=== PATIENT | male | born 1985 ===

== ENCOUNTER 2017-12-31 17:49 | Emergency (ER) | payer OTHER ==
[~2017-12-31 17:49] MED LIST: ASP81CT PO; LORA1TAB PO; RIVA20TA2 PO; WRF5T PO
--- OUTSIDE RECORDS SUMMARY | 2018-01-01 11:56 | XMS REPORT | Continuity of Care Document ---
Author Author [facility] Organization [facility] Address Unknown Phone Unavailable Allergies There is no data. Medications Medication Packaging Start Date Stop Date Route Dosage Sig XARELTO 01/18/2015 ORAL 1414 daily FLUTICASONE PROPIONATE 2014 Nasal 1616 daily FLONASE 02/21/2015 11 QDAY AUGMENTIN 02/21/2015 ORAL 2020 BID FLONASE 02/21/2015 1 QDAY AUGMENTIN 02/21/2015 ORAL 20 BID Problems Date Dx Coded Attending Type Code Diagnosis Diagnosed By 11/18/2012 Ot 415.19 OTH PULMON EMBOLISM/INFARCT 11/18/2012 Ot 453.40 ACUTE VENOUS EMBOLISM THROMBOSIS UNSP 11/18/2012 Ot 729.5 PAIN IN LIMB 02/18/2013 VICKEY MCMANUS MD Ot 785.1 PALPITATIONS 02/18/2013 VICKEY MCMANUS MD Ot 786.05 SHORTNESS OF BREATH 02/18/2013 VICKEY MCMANUS MD Ot 786.09 RESPIRATORY ABNORM NEC 02/18/2013 VICKEY MCMANUS MD Ot V12.51 HX-VENOUS THROMBOSIS EMBOLISM 02/18/2013 VICKEY MCMANUS MD Ot V12.55 PERSONAL HISTORY OF PULMONARY EMBOLISM 02/18/2013 VICKEY MCMANUS MD Ot V58.69 OTH MED,LT,CURRENT USE Procedures There is no data. Results There is no data. Encounters ACCT No. Visit Date/Time Discharge Status Pt. Type Provider Facility Loc./Unit Complaint [id number] 12/31/2017 17:50:00 12/31/2017 18:00:00 DIS Emergency VICKEY MCMANUS MD [facility] ER ANXIETY [id number] 02/18/2013 19:20:00 02/18/2013 23:42:00 DIS Emergency VICKEY MCMANUS MD [facility] ER SOA [id number] 11/18/2012 16:00:00 Document Registration [id number] 03/06/2015 07:10:13 03/06/2015 07:10:13 DIS Outpatient [id number] 02/23/2015 07:12:59 Document Registration [id number] 02/23/2015 07:12:53 Document Registration [id number] 02/23/2015 07:12:50 Document Registration [id number] 02/23/2015 07:12:23 Document Registration [id number] 02/23/2015 07:12:19 Document Registration [id number] 02/23/2015 07:12:16 Document Registration [id number] 02/23/2015 07:12:12 Document Registration [id number] 02/23/2015 07:12:08 Document Registration [id number] 02/23/2015 07:12:05 Document Registration [id number] 02/23/2015 07:11:57 Document Registration [id number] 02/23/2015 07:11:54 Document Registration [id number] 02/23/2015 07:11:50 Document Registration [id number] 02/23/2015 07:11:47 Document Registration [id number] 02/23/2015 07:11:39 Document Registration [id number] 01/18/2015 17:39:41 Document Registration [id number] 01/18/2015 17:39:38 Document Registration [id number] 01/18/2015 17:39:34 Document Registration [id number] 01/18/2015 17:39:31 Document Registration [id number] 01/18/2015 17:39:27 Document Registration
== END 2017-12-31 18:00 | disposition left against medical advice (07) ==
LOC: EDUNIT# 17:49 → ER 17:50
DX: F41.9 Anxiety disorder, unspecified (principal)

== ENCOUNTER 2018-01-05 19:09 | Emergency (ER) | payer OTHER ==
[~2018-01-05] VITALS: Ht 188 cm; Wt 90.7 kg
--- OUTSIDE RECORDS SUMMARY | 2018-01-05 19:13 | XMS REPORT | Continuity of Care Document ---
Author Author [facility] Organization [facility] Address Unknown Phone Unavailable Allergies There [...] EMBOLISM 02/18/2013 VICKEY MCMANUS MD Ot V58.69 OT MED,LT,CURRENT USE 01/02/2018 VICKEY MCMANUS MD Ot F41.9 ANXIETY DISORDER, UNSPECIFIED 01/02/2018 VICKEY MCMANUS MD Ot F41.9 ANXIETY DISORDER, UNSPECIFIED Procedures There is no data. Results There is no data. Encounters ACCT No. Visit Date/Time Discharge Status Pt. Type Provider Facility Loc./Unit Complaint [id number] 12/31/2017 17:50:00 12/31/2017 18:00:00 DIS Outpatient VICKEY MCMANUS MD [facility] ER ANXIETY [id number] 02/18/2013 19:20:00 02/18/2013 23:42:00 DIS Emergency YONATHAN TERRY, VICKEY Lopes [facility] ER SOA [id number] 11/18/2012 16:00:00 Document Registration [id number] 03/06/2015 07:10:13 03/06/2015 07:10:13 DIS Outpatient [id number] 02/23/2015 07:12:59 Document Registration [id number] 02/23/2015 07:12:53 Document Registration [id number] 02/23/2015 07:12:50 Document Registration [id number] 02/23/2015 07:12:23 Document Registration [id number] 02/23/2015 07:12:19 Document Registration [id number] 02/23/2015 07:12:16 Document Registration [id number] 02/23/2015 07:12:12 Document Registration [id number] 02/23/2015 07:12:08 Document Registration [id number] 02/23/2015 07:12:05 Document Registration [id number] 02/23/2015 07:11:57 Document Registration [id number] 02/23/2015 07:11:54 Document Registration [id number] 02/23/2015 07:11:50 Document Registration [id number] 02/23/2015 07:11:47 Document Registration [id number] 02/23/2015 07:11:39 Document Registration [id number] 01/18/2015 17:39:41 Document Registration [id number] 01/18/2015 17:39:38 Document Registration [id number] 01/18/2015 17:39:34 Document Registration [id number] 01/18/2015 17:39:31 Document Registration [id number] 01/18/2015 17:39:27 Document Registration
[2018-01-05 20:38] LABS: BASOPHILS % (AUTO) 0 % (0-10); EOSINOPHILS % (AUTO) 1 % (0-10); HEMATOCRIT 42 % (40-54); HEMOGLOBIN 15.2 G/DL (13.3-17.7); LYMPHOCYTES % (AUTO) 17 % (12-44); MEAN CORPUSCULAR HEMOGLOBIN 33 PG (25-34); MEAN CORPUSCULAR HGB CONC 36 G/DL (32-36); MEAN CORPUSCULAR VOLUME 91 FL (80-99); MEAN PLATELET VOLUME 9.7 FL (7.4-10.4); MONOCYTES # (AUTO) 0.5 X 10^3 (0.0-1.0); MONOCYTES % (AUTO) 9 % (0-12); NEUTROPHILS # (AUTO) 4.2 X 10^3 (1.8-7.8); NEUTROPHILS % (AUTO) 73 % (42-75); PLATELET COUNT 219 10^3/uL (130-400); RED BLOOD COUNT 4.62 10^6/uL (4.35-5.85); WHITE BLOOD COUNT 5.7 10^3/uL (4.3-11.0)
[2018-01-05 20:49] LABS: ALANINE AMINOTRANSFERASE 107 U/L (0-55); ALBUMIN 4.8 GM/DL (3.2-4.5); ALKALINE PHOSPHATASE 64 U/L (40-136); BILIRUBIN,TOTAL 0.8 MG/DL (0.1-1.0); BUN/CREATININE RATIO 8; CALCIUM 9.5 MG/DL (8.5-10.1); CARBON DIOXIDE 26 MMOL/L (21-32); CHLORIDE 106 MMOL/L (98-107); CREATININE SERUM 0.83 MG/DL (0.60-1.30); GFR ESTIMATED > 60; GLUCOSE 97 MG/DL (70-105); SODIUM 141 MMOL/L (135-145); TOTAL PROTEIN 7.5 GM/DL (6.4-8.2)
--- NOTE | 2018-01-05 20:51 | ED General ---
General Chief Complaint: General Problems/Pain Stated Complaint: TOO MUCH SALT INTAKE/DIZZINESS Nursing Triage Note: high blood pressure, dizziness, difficulty walking, increased salt intake Nursing Sepsis Screen: No Definite Risk Source of Information: Patient Exam Limitations: No Limitations History of Present Illness Date Seen by Provider: Jan 05, 2018 Time Seen by Provider: 20:50 Initial Comments 32-year-old male patient presents to the emergency department with complaints of electrolyte imbalances and hypertension. Patient states yesterday he felt like his sodium was too low, so he drank "a ton of salt water and salty foods". Patient then today felt like he had too much sodium yesterday. Patient has children and water throughout the day. Patient now complaining of high blood pressure, dizziness, and difficulty walking. Patient ambulated in the emergency department without difficulty. Timing/Duration: 1 Day, Constant Allergies and Home Medications Allergies Coded Allergies: Heparin Analogues (Unverified Allergy, Unknown, 01/05/18) Home Medications Aspirin 81 Mg Chew, 81 MG PO DAILY, (Reported) Patient Home Medication List Home Medication List Reviewed: Yes Review of Systems Constitutional: No chills, No diaphoresis; dizziness; No fever; malaise; No weakness EENTM: no symptoms reported Respiratory: No cough, No dyspnea on exertion, No hemoptysis, No orthopnea, No phlegm, No short of breath (c/o intermittent SOA, but denies current symptoms. ) , No wheezing Cardiovascular: No chest pain, No edema, No palpitations, No syncope Gastrointestinal: No abdominal pain, No constipation, No diarrhea, No loss of appetite, No nausea, No vomiting Genitourinary: no symptoms reported Musculoskeletal: no symptoms reported Skin: no symptoms reported Psychiatric/Neurological: No Symptoms Reported All Other Systems Reviewed Negative Unless Noted: Yes (Negative excepted noted.) Past Bfpnxqj-Ykgbls-Ccsvqd Hx Patient Social History Alcohol Use: Rarely Uses Recreational Drug Use: No Smoking Status: Never a Smoker 2nd Hand Smoke Exposure: No Recent Foreign Travel: No Contact w/Someone Who Travel: No Recent Infectious Disease Expo: No Recent Hopitalizations: No Immunizations Up To Date Tetanus Booster (TDap): Unknown Seasonal Allergies Seasonal Allergies: No Past Medical History Surgeries: Yes (lt iliac stent placement for DVT 09/2010) Respiratory: Yes Pulmonary Embolism Cardiac: No Neurological: No Reproductive Disorders: No Sexually Transmitted Disease: No Genitourinary: No Gastrointestinal: No Musculoskeletal: No Endocrine: No HEENT: No Cancer: No Psychosocial: Yes Anxiety Integumentary: No Family Medical History Reviewed Nursing Family Hx No Pertinent Family Hx Physical Exam Vital Signs Capillary Refill : Less Than 3 Seconds General Appearance: No Apparent Distress, WD/WN HEENT: PERRL/EOMI, TMs Normal, Normal ENT Inspection, Pharynx Normal, Moist Mucous Membranes Neck: Normal Inspection, Supple Respiratory: Lungs Clear, Normal Breath Sounds, No Accessory Muscle Use, No Respiratory Distress Cardiovascular: Regular Rate, Rhythm, No Edema, No Murmur, Normal Peripheral Pulses Gastrointestinal: Normal Bowel Sounds, No Organomegaly, No Pulsatile Mass, Non Tender, Soft Back: Normal Inspection Extremity: Normal Capillary Refill, Normal Inspection, Non Tender, No Calf Tenderness, No Pedal Edema Neurologic/Psychiatric: Alert, Oriented x3, No Motor/Sensory Deficits, Normal Mood/Affect, manager trust II-XII Norm as Tested Skin: Normal Color, Warm/Dry Progress/Results/Core Measures Suspected Sepsis Recent Fever Within 48 Hours: No Infection Criteria Present: None New/Unexplained Altered Menta: No Sepsis Screen: No Definite Risk SIRS Temperature:97.8 Pulse: 108 Respiratory Rate: 18 Blood Pressure 123 /97 Mean: 106 Results/Orders Lab Results My Orders Medications Given in ED Vital Signs/I&O Capillary Refill : Less Than 3 Seconds Blood Pressure Mean: 106 Diagnostic Imaging Diagonstic Imaging: CT Plain Films/CT/US/NM/MRI: chest Comments no acute findings. no evidence of PE per the stat rad report. Reviewed: Reviewed Night [facility] Departure Communication (Admissions) Patient seen and evaluated. Labs drawn and CT angio chest obtained. 1 liter of NS given. Patient reports feeling better with the IVF. No evidence of PE noted on CT per the stat rad report. Patient is A/Ox4, NAD. LCTA. CVRRR no murmur. We will plan for dsch to home with f/u as an outpatient with the patient's PCP for recheck. He will call for an appointment time. Patient instructed to return to the ED immediately for worsened symptoms or any other concerns. Patient case discussed with Dr. Kay, he agrees with the plan of care. Impression Primary Impression: General medical exam Additional Impression: History of pulmonary embolism Disposition: HOME, SELF-CARE Condition: Improved Departure-Patient Inst. Decision time for Depature: 23:14 Referrals: NO,LOCAL PHYSICIAN (PCP/Family) Primary Care Physician Patient Instructions: NO INSTRUCTIONS GIVEN Add. Discharge Instructions: All discharge instructions reviewed with patient and/or family. Voiced understanding. Tylenol extra strength atvy-hnp-lhfozlg as directed for pain. Ibuprofen 800 mg by mouth every 8 hours as needed for pain. Follow-up with your family practitioner for recheck and discussion of possibly needing to restart your anticoagulants to prevent pulmonary embolisms/deep vein thrombosis. Return to the emergency department for worsened symptoms, shortness of air, chest pain, dizziness, fever, vomiting, or any other concerns. Work/School Note: Local [employer]ing [place] DINERO Jan 05, 2018 20:50
[2018-01-05 20:52] LABS: BILIRUBIN,URINE NEGATIVE (NEGATIVE); CLARITY,URINE CLEAR; COLOR,URINE YELLOW; GLUCOSE, URINE (UA) NEGATIVE (NEGATIVE); KETONES,URINE NEGATIVE (NEGATIVE); LEUKOCYTE ESTERASE ,URINE NEGATIVE (NEGATIVE); NITRITE,URINE NEGATIVE (NEGATIVE); PH,URINE 7 (5-9); PROTEIN,URINE NEGATIVE (NEGATIVE); UROBILINOGEN,URINE NORMAL (NORMAL)
[2018-01-05 20:58] LABS: BACTERIA,URINE NEGATIVE /HPF
[2018-01-05 21:09] VITALS: BP 127/71
[2018-01-05 21:17] LABS: AMPHETAMINE SCREEN, URINE NEGATIVE (NEGATIVE); BARBITURATE SCREEN URINE NEGATIVE (NEGATIVE); BENZODIAZEPINES SCREEN URINE NEGATIVE (NEGATIVE); CANNABINOID SCREEN, URINE NEGATIVE (NEGATIVE); COCAINE SCREEN URINE NEGATIVE (NEGATIVE); METHADONE STAT NEGATIVE (NEGATIVE); METHAMPHETAMINE SCREEN URINE S NEGATIVE (NEGATIVE); OPIATE SCREEN URINE NEGATIVE (NEGATIVE); OXYCODONE STAT NEGATIVE (NEGATIVE); PROPOXYPHENE STAT NEGATIVE (NEGATIVE); TRICYCLIC ANTIDEPRESSANTS SCRE NEGATIVE (NEGATIVE)
[2018-01-05] MEDS ORDERED: NS IV 1000 ML 1,000 ML IV ONE (21:17)
[2018-01-05] MEDS ORDERED: IOHEXOL 350 MG/ML 150 ML (OMNIPAQUE 350) VIAL IV ONE (21:30)
[2018-01-05] MEDS ORDERED: NS 100 ML (IVPB) BAG IV ONE (21:30)
[2018-01-05] MEDS ORDERED: NS 250 ML (IVPB) BAG IV ONE (22:45)
[2018-01-05 23:22] VITALS: BP 127/71
--- NOTE | 2018-01-06 06:04 | Diagnostic Imaging Report ---
PROCEDURE: CT angiography of the chest with contrast. TECHNIQUE: Multiple contiguous axial images were obtained through the chest after uneventful bolus administration of intravenous contrast. Reconstructed CTA MIP acquisitions were also performed. INDICATION: Hypertension. Dizziness. Difficulty talking. COMPARISON: CTA chest 02/18/2013. FINDINGS: No pulmonary artery filling defects. Normal caliber thoracic aorta without evidence of aneurysm or dissection. Normal heart size. No pericardial effusion. No mediastinal, hilar or axillary lymphadenopathy. Lungs are clear. No endobronchial lesions. No pleural effusion or pneumothorax. The visualized upper abdominal contents are unremarkable. Osseous structures are negative. IMPRESSION: 1. No pulmonary emboli. No thoracic aortic aneurysm or dissection. 2. No acute CT findings in the chest. Dictated by: Dictated on workstation # [id number]
== END 2018-01-05 23:22 | disposition home or self-care (01) ==
LOC: EDUNIT# 19:09 → ER 19:10
DX: I10 Essential (primary) hypertension (principal); E87.8 Other disorders of electrolyte and fluid balance, not elsewhere classified; F41.9 Anxiety disorder, unspecified; Z88.8 Allergy status to other drugs, medicaments and biological substances; Z79.82 Long term (current) use of aspirin; Z86.718 Personal history of other venous thrombosis and embolism; Z85.828 Personal history of other malignant neoplasm of skin
CPT/HCPCS: 36415; 71275; 80053; 80306; 80320; 81000; 85025; 85379; 96360